=== PATIENT | female | born 2000 | race Caucasian/White ===

== ENCOUNTER 2022-04-25 12:42 | Emergency (ER) | payer BC ==
[~2022-04-25] VITALS: Ht 167.6 cm; Wt 68.0 kg
--- NOTE | 2022-04-25 12:50 | NUR ---
RECEIVED PT 21 YRS FEMALE C/O SWALLEN ON NECK FOR 2 DAY DINESES SOB OR WHEEZING
--- NOTE | 2022-04-25 13:00 | NUR ---
SEE BY DR. HESS
[2022-04-25 13:01] VITALS: BP 126/70
[2022-04-25] MEDS ORDERED: AMOX-430 PO (13:09)
--- NOTE | 2022-04-25 13:12 | NUR ---
Patient discharged to home in stable condition. Written and verbal after care instructions given. Patient verbalizes understanding of instruction.
--- NOTE | 2022-04-25 13:12 | NUR ---
MEDICTION NOT GIVEN pt walk out before mediction was given
--- NOTE | 2022-04-25 13:15 | NUR ---
Donnie bowen in [facility] - 04/25/22 at 1503 by AGUSTIN SEEN BY
[2022-04-25] MEDS ORDERED: AMOX/CLAVULANATE 875 MG TABLET PO ONE (13:30)
== END 2022-04-25 15:14 | disposition home or self-care (01) ==
LOC: ER 12:53
DX: L04.0 Acute lymphadenitis of face, head and neck (principal)